=== PATIENT | female | born 1930 | race Caucasian/White ===

== ENCOUNTER → 2016-05-29 | Outpatient (CLI) | payer OTHER | LOC: MMPC 09:00 | PROVIDERS: ATTEND Obstetrics & Gynecology | DX: N99.3 Prolapse of vaginal vault after hysterectomy (principal); Z46.89 Encounter for fitting and adjustment of other specified devices | CPT/HCPCS: 99213; G0463 ==

== ENCOUNTER → 2016-06-12 | Outpatient (CLI) | payer OTHER | LOC: MMPC 09:00 | PROVIDERS: ATTEND Obstetrics & Gynecology | DX: N99.3 Prolapse of vaginal vault after hysterectomy (principal) | CPT/HCPCS: 99213 ==

== ENCOUNTER → 2016-08-28 | Outpatient (CLI) | payer OTHER ==
[2016-08-29 14:36] LABS: BASOPHILS # (AUTO) 0.05 10*3/UL; BASOPHILS % (AUTO) 0.8 % (0-1); EOSINOPHILS # (AUTO) 0.05 10*3/UL; EOSINOPHILS % (AUTO) 0.8 % (0-8); HEMATOCRIT 35.7 % (37.0-47.0); LYMPHOCYTES # (AUTO) 0.99 10*3/uL; MEAN CORPUSCULAR HEMOGLOBIN 28.8 PG (27-31); MEAN CORPUSCULAR HGB CONC 30.8 g/dL (33-37); MEAN CORPUSCULAR VOLUME 93.5 FL (81-99); MEAN PLATELET VOLUME 10.4 FL (7.4-12.2); MONOCYTES # (AUTO) 0.53 10*3/UL (0.3-0.8); MONOCYTES % (AUTO) 8.1 % (5-15); NEUTROPHILS # (AUTO) 4.93 10*3/UL; RED BLOOD COUNT 3.82 10^6/uL (4.20-5.40)
[2016-08-29 14:41] LABS: PLATELET MORPHOLOGY COMMENT NORMAL MORPHOLOGY (NORM); RBC MORPHOLOGY COMMENT NORMAL MORPHOLOGY (NORM); WBC MORPHOLOGY COMMENT NORMAL MORPHOLOGY (NORM)
== END ==
LOC: LAB 13:53
PROVIDERS: ATTEND Physician Assistant Medical
DX: R53.1 Weakness (principal); R53.83 Other fatigue
CPT/HCPCS: 85025

== ENCOUNTER → 2016-09-11 | Outpatient (CLI) | payer OTHER | LOC: MMPC 09:00 | PROVIDERS: ATTEND Obstetrics & Gynecology | DX: N99.3 Prolapse of vaginal vault after hysterectomy (principal); F33.1 Major depressive disorder, recurrent, moderate; I48.91 Unspecified atrial fibrillation; I10 Essential (primary) hypertension | CPT/HCPCS: 99213; G0463 ==

== ENCOUNTER → 2016-11-07 | Outpatient (CLI) | payer OTHER ==
[2016-11-08 14:48] LABS: BLOOD UREA NITROGEN 36 mg/dL (7-22); CALCIUM 9.6 mg/dL (8.7-10.7); SERUM ALBUMIN 3.9 g/dL (3.5-4.8)
[2016-11-08 15:22] LABS: CHOL/HDL RATIO 2.29 RATIO (0-4.0); LDL CHOLESTEROL,CALCULATED 54.8 mg/dL
== END ==
LOC: LAB 13:24
PROVIDERS: ATTEND Physician Assistant Medical
DX: I48.91 Unspecified atrial fibrillation (principal); E78.5 Hyperlipidemia, unspecified; E03.9 Hypothyroidism, unspecified; I10 Essential (primary) hypertension; Z46.89 Encounter for fitting and adjustment of other specified devices
CPT/HCPCS: 80053; 80061; 84443